=== PATIENT | male | born 1950 | race African-American/Black ===

== ENCOUNTER 2020-04-21 19:55 | Inpatient (IN) ==
[2020-04-21] MEDS ORDERED: FUROSEMIDE 40 MG/4 ML VIAL IV STA (21:51)
[2020-04-21] MEDS ORDERED: methylPREDNISolone SOD SUC 125 MG/2 ML VIAL IV STA (21:51)
[2020-04-21] MEDS ORDERED: ALBUTEROL NEB SOLN 5 MG/ML 20 ML/BOTTLE CONT NEB SCH (22:00)
[2020-04-21 22:20] LABS: Basophils % 0.6 % (0.0-0.8); Eosinophils # 0.1 10*3/uL (0.0-0.87); Eosinophils % 1.3 % (0.00-10.9); Hematocrit 43.1 VOL% (42.0-52.0); Hemoglobin 13.9 GM/DL (14.0-18.0); Immature Granulocytes % 0.5 %; Immature Granulocytes Absolute 0.03 #; Lymphocytes # 0.7 10*3/uL (1.4-4.0); Lymphocytes % 10.5 % (21.2-54.2); Mean Corpuscular HGB Conc 32.3 GM/DL (32-36); Mean Corpuscular Volume 92.3 FL (87-102); Mean Platelet Volume 11.9 FL (9.6-12.0); Monocytes % 8.9 % (1.7-12.7); Neutrophils % 78.2 % (38.7-73.9); Platelet Count 223 T/CUMM (130-400); Red Blood Count 4.67 MC/CUMM (3.8-5.5); Red Cell Distribution Width 13.9 % (9.3-17.3); White Blood Count 6.3 T/CUMM (4-12)
[2020-04-21 22:25] LABS: ABG Base Excess -1.1 MMOL/L (-2.5-2.5); ABG HCO3 23.4 MMOL/L (20-26); ABG Oxygen Saturation 94.2 % (95-100); ABG PCO2 33.7 MM HG (35-48); ABG PH 7.431 (7.35-7.45); ABG PO2 73.2 MM HG (80-95); ABG TCO2 19.3 MMOL/L (23-27); Allen Test Positive
[2020-04-21 22:33] LABS: Alanine Aminotransferase 15 U/L (16-61); Alkaline Phosphatase 154 U/L (45-117); Aspartate Amino Transferase 17 U/L (0-37); Bilirubin,Total < 0.39 MG/DL (0.2-1.0); Blood Urea Nitrogen 9 MG/DL (7-18); Calcium 9.1 MG/DL (8.5-10.1); Estimated Glom Filtration Rate 63 ML/MIN; Glucose 103 MG/DL (74-106); Total Protein 6.7 G/DL (6.4-8.3)
[2020-04-21 22:39] LABS: INR 1.1; PT Patient Result 11.4 SECS (9.8-11.9)
[2020-04-22] MEDS ORDERED: DEXTROSE 50% 25 GM/50 ML VIAL IV PRN (02:15)
[2020-04-22] MEDS ORDERED: GLUCAGON 1 MG VIAL IM PRN (02:15)
[2020-04-22] MEDS ORDERED: ACETAMINOPHEN 325 MG TABLET PO PRN (02:15)
[2020-04-22] MEDS ORDERED: ONDANSETRON 4 MG/2 ML VIAL IV PRN (02:15)
[2020-04-22] MEDS ORDERED: DEXTROSE 50% 25 GM/50 ML SYRINGE IV PRN (02:37)
[2020-04-22] MEDS: ENOXAPARIN 40 MG/0.4 ML SYRINGE SUBCUT SCH (05:54)
[2020-04-22] MEDS: methylPREDNISolone SOD SUC 40 MG/1 ML VIAL IV SCH ×3 (05:55→21:29)
[2020-04-22] MEDS: PANTOPRAZOLE 40 MG TABLET PO SCH (09:35)
[2020-04-22] MEDS: ALBUTEROL/IPRATROPIUM 3 ML NEB RESP TX SCH ×3 (10:00→18:57)
[2020-04-22] MEDS: cefTRIAXone 1,000 MG in SYRINGE 1 EACH IV SCH (12:02)
[2020-04-23] MEDS: ALBUTEROL/IPRATROPIUM 3 ML NEB RESP TX SCH ×4 (01:26→19:08)
[2020-04-23] MEDS: methylPREDNISolone SOD SUC 40 MG/1 ML VIAL IV SCH ×3 (06:11→22:21)
[2020-04-23] MEDS: ENOXAPARIN 40 MG/0.4 ML SYRINGE SUBCUT SCH (06:13)
[2020-04-23] MEDS ORDERED: PROMETHAZINE 25 MG/1 ML VIAL IM ONE (07:30)
[2020-04-23] MEDS ORDERED: MEPERIDINE 50 MG/1 ML VIAL IM ONE (07:30)
[2020-04-23] MEDS ORDERED: LIDOCAINE 1% 20 ML VIAL MISC INJ ONE (08:00)
[2020-04-23] MEDS ORDERED: LIDOCAINE 2% 20 ML VIAL RESP TX ONE (08:00)
[2020-04-23] MEDS ORDERED: MIDAZOLAM 2 MG/2 ML VIAL IV ONE (08:00)
[2020-04-23] MEDS ORDERED: LIDOCAINE 2% VISCOUS 100 ML BOTTLE SWISH/SPIT ONE (08:00)
[2020-04-23 09:29] LABS: Basophils % 0.1 % (0.0-0.8); Hematocrit 44.4 VOL% (42.0-52.0); Hemoglobin 14.5 GM/DL (14.0-18.0); Immature Granulocytes % 0.5 %; Immature Granulocytes Absolute 0.05 #; Lymphocytes # 0.4 10*3/uL (1.4-4.0); Lymphocytes % 3.4 % (21.2-54.2); Mean Corpuscular HGB Conc 32.7 GM/DL (32-36); Mean Corpuscular Volume 92.7 FL (87-102); Mean Platelet Volume 11.5 FL (9.6-12.0); Monocytes % 3.4 % (1.7-12.7); Neutrophils % 92.6 % (38.7-73.9); Platelet Count 221 T/CUMM (130-400); Red Blood Count 4.79 MC/CUMM (3.8-5.5); White Blood Count 10.6 T/CUMM (4-12)
[2020-04-23 09:47] LABS: Hypochromasia 1+; Lymphocytes 1 % (20-55); Microcytosis 1+; Ovalocytes Slight; Platelet Estimate Adequate; Segmented Neutrophils 96 % (50-85); Total Cells Counted 100
[2020-04-23 10:12] LABS: Calcium 9.8 MG/DL (8.5-10.1)
[2020-04-23] MEDS: MULTIVITAMIN (CENTRUM) TABLET PO SCH (10:34)
[2020-04-23] MEDS: ASPIRIN EC 81 MG TABLET PO SCH (10:35)
[2020-04-23] MEDS: PANTOPRAZOLE 40 MG TABLET PO SCH (10:36)
[2020-04-23] MEDS: cefTRIAXone 1,000 MG in SYRINGE 1 EACH IV SCH (13:06)
[2020-04-24] MEDS: ALBUTEROL/IPRATROPIUM 3 ML NEB RESP TX SCH ×4 (00:45→20:30)
[2020-04-24 06:18] LABS: Basophils % 0.1 % (0.0-0.8); Hematocrit 43.5 VOL% (42.0-52.0); Hemoglobin 14.1 GM/DL (14.0-18.0); Immature Granulocytes % 0.5 %; Immature Granulocytes Absolute 0.07 #; Lymphocytes # 0.4 10*3/uL (1.4-4.0); Mean Corpuscular HGB Conc 32.4 GM/DL (32-36); Mean Corpuscular Volume 94.2 FL (87-102); Mean Platelet Volume 12.3 FL (9.6-12.0); Monocytes % 3.8 % (1.7-12.7); Neutrophils % 92.6 % (38.7-73.9); Platelet Count 228 T/CUMM (130-400); Red Blood Count 4.62 MC/CUMM (3.8-5.5); White Blood Count 14.3 T/CUMM (4-12)
[2020-04-24 06:41] LABS: Calcium 9.6 MG/DL (8.5-10.1); Lymphocytes 1 % (20-55); Osmolality,Calculated 282.7 MOS/KG (273-304); Platelet Estimate Adequate; Segmented Neutrophils 98 % (50-85); Total Cells Counted 100
[2020-04-24 06:42] LABS: Ovalocytes Slight
[2020-04-24] MEDS: ENOXAPARIN 40 MG/0.4 ML SYRINGE SUBCUT SCH (06:44)
[2020-04-24] MEDS: methylPREDNISolone SOD SUC 40 MG/1 ML VIAL IV SCH (06:44)
[2020-04-24] MEDS ORDERED: amLODIPine 5 MG TABLET PO SCH (09:00)
[2020-04-24] MEDS: MULTIVITAMIN (CENTRUM) TABLET PO SCH (11:27)
[2020-04-24] MEDS: ASPIRIN EC 81 MG TABLET PO SCH (11:29)
[2020-04-24] MEDS: PANTOPRAZOLE 40 MG TABLET PO SCH (11:29)
[2020-04-24] MEDS: LOSARTAN 25 MG TABLET PO SCH (11:29)
[2020-04-24] MEDS: cefTRIAXone 1,000 MG in SYRINGE 1 EACH IV SCH (11:30)
[2020-04-24] MEDS: FUROSEMIDE 20 MG/2 ML VIAL IV SCH ×2 (17:08→17:22)
[2020-04-24] MEDS: METOPROLOL TARTRATE 25 MG TABLET PO SCH ×2 (17:09→23:28)
[2020-04-25] MEDS: ALBUTEROL/IPRATROPIUM 3 ML NEB RESP TX SCH ×4 (02:33→19:18)
[2020-04-25] MEDS: ENOXAPARIN 40 MG/0.4 ML SYRINGE SUBCUT SCH (05:38)
[2020-04-25 06:40] LABS: Calcium 9.3 MG/DL (8.5-10.1)
[2020-04-25] MEDS ORDERED: predniSONE 20 MG TABLET PO SCH (09:00)
[2020-04-25] MEDS: MULTIVITAMIN (CENTRUM) TABLET PO SCH (09:43)
[2020-04-25] MEDS: PANTOPRAZOLE 40 MG TABLET PO SCH (09:43)
[2020-04-25] MEDS: METOPROLOL TARTRATE 25 MG TABLET PO SCH (09:43)
[2020-04-25] MEDS: ASPIRIN EC 81 MG TABLET PO SCH (09:43)
[2020-04-25] MEDS: LOSARTAN 25 MG TABLET PO SCH (09:43)
[2020-04-25] MEDS: FUROSEMIDE 20 MG/2 ML VIAL IV SCH ×2 (09:44→16:41)
[2020-04-25 11:11] LABS: Lymphocytes,Pleural Fluid 77 %; Neutrophils,Pleural Fluid 23 %
[2020-04-25] MEDS: cefTRIAXone 1,000 MG in SYRINGE 1 EACH IV SCH (11:34)
[2020-04-25 11:49] LABS: LDH,Body Fluid 230 U/L; Total Protein,Body Fluid 3.6 G/DL
[2020-04-25 16:58] LABS: RBC,Pleural Fluid 114 T/CUMM
[2020-04-25 20:00] VITALS: BP 104/58
== END 2020-04-25 17:47 | disposition home or self-care (01) | DRG 166 ==
LOC: N.ED 19:55 → N.EDINP 04-22 00:43 → SUATTDRO 04-22 00:43 → N.EDINP 04-22 02:10 → N.TELES 04-22 02:48
PROVIDERS: ADMIT Internal Medicine; ATTEND Internal Medicine
PROC: BRONCHB (2020-04-23 08:05)